=== PATIENT | female | born 1965 | race Two or more races ===

== ENCOUNTER → 2019-05-23 18:19 | Outpatient (CLI) | payer MEDICAID, SELFPAY | PROVIDERS: Referring Provider Physician Assistant Medical; Visit Provider Physician Assistant Medical | DX: L08.9 Local infection of the skin and subcutaneous tissue, unspecified (principal); B35.1 Tinea unguium; L60.8 Other nail disorders; L60.3 Nail dystrophy | CPT/HCPCS: 87101 ==